=== PATIENT | female | born 1930 | race Caucasian/White ===

== ENCOUNTER → 2018-01-03 | Outpatient (CLI) | payer OTHER | LOC: BMCIMAGING 16:16 | PROVIDERS: ATTEND Emergency Medicine | DX: J18.9 Pneumonia, unspecified organism (principal) ==

== ENCOUNTER 2018-01-09 21:19 | Observation (INO) | payer OTHER ==
--- NOTE | 2018-01-09 21:41 | EDPHY ---
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 - Social History Smoking Status: Never smoked Time Seen by Provider: 01/09/18 21:37 HPI/ROS: HPI: This is an 87-year-old female who presents with Chief Complaint: THURSDAY: [place] [facility] [place], FINISHED Z-PACK, "FEEL WORSE" Location: Chest Quality: Cough Duration: Several days Signs and Symptoms: + fever, no nausea, no vomiting, no diarrhea, no urinary symptoms, no chest pain, + shortness of breath, + wheezing,+ productive cough, no sore throat, no neck stiffness, no joint pain, no swollen glands, no ear pain , no rash Timing: Worsening Severity: Moderate Context: Patient has a history hard of hearing, diabetes mellitus presents accompanied by daughter with complaints of feeling worse today than the last few days. She had a chest x-ray outpatient performed on 01/03/2018 that shows bronchitis and early right lower lobe pneumonia. She was placed on azithromycin. Patient reports that she was slowly improving until today when she started to have fevers again feel greater fatigue and decreased appetite. She notes a productive cough of green sputum. Daughter reports that when she was getting dressed to come to the emergency room she noted some wheezing. No history of lung disease. Received influenza vaccine this year. Modifying Factors: See above Comment: ROS: A comprehensive 10 system review of systems is otherwise negative aside from elements mentioned in the history of present illness. 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 Nonsmoker. Family history noncontributory. CONSTITUTIONAL: Ill but nontoxic-appearing elderly white female, daughter at bedside, red faced, awake and alert, no obvious distress HEENT: Atraumatic and normocephalic, PERRL, EOMI. Nares patent; no rhinorrhea; no nasal mucosal edema. Tympanic membranes clear. Left ear hard of hearing. Oropharynx clear, no exudate and dry oral mucosa. Airway patent. No lymphadenopathy. No meningismus. Cardiovascular: Normal S1/S2, regular rate, regular rhythm, without murmur rub or gallop. PULMONARY/CHEST: Symmetrical and nontender. Clear to auscultation bilaterally. Good air movement. No accessory muscle usage. Tachypnea noted ABDOMEN: Soft, nondistended, nontender, no rebound, no guarding, no peritoneal signs, no masses or organomegaly. No CVAT. EXTREMITIES: 2/2 pulses, strength 5/5, no deformities, no clubbing, no cyanosis or edema. NEUROLOGICAL: no focal neuro deficits. GCS 15. SKIN: Warm and dry, pallor, no erythema. no rash. Good capillary refill. (Teresa Pires) Constitutional: Initial Vital Signs Temperature (C) 36.4 C 01/09/18 21:20 Heart Rate 90 01/09/18 21:20 Respiratory Rate 20 01/09/18 21:20 Blood Pressure 141/66 H 01/09/18 21:20 O2 Sat (%) 95 01/09/18 21:20 O2 Delivery Mode Room Air O2 (L/minute) 2 Allergies/Adverse Reactions: clindamycin [From Cleocin] Allergy (Verified 01/09/18 21:32) doxycycline Allergy (Verified 01/09/18 21:32) duloxetine [From Cymbalta] Allergy (Verified 01/09/18 21:32) levofloxacin [From Levaquin] Allergy (Verified 01/09/18 21:32) lisinopril Allergy (Verified 01/09/18 21:32) metoprolol [From Toprol XL] Allergy (Verified 01/09/18 21:32) morphine Allergy (Verified 01/09/18 21:32) nebivolol [From Bystolic] Allergy (Verified 01/09/18 21:32) Penicillins Allergy (Verified 01/09/18 21:32) pregabalin [From Lyrica] Allergy (Verified 01/09/18 21:32) rosuvastatin [From Crestor] Allergy (Verified 11/10/18 21:32) sulfamethoxazole [From Bactrim] Allergy (Verified 01/09/18 21:32) tramadol Allergy (Verified 01/09/18 21:32) trimethoprim [From Bactrim] Allergy (Verified 01/09/18 21:32) valacyclovir [From Valtrex] Allergy (Verified 01/09/18 21:32) Home Medications: Medication Instructions Recorded Albuterol [Proventil Inhaler HFA 1 - 2 puffs IH Q4H PRN 01/09/18 (*)] Folic Acid [Folic Acid 1 MG (*)] 1 mg PO DAILY 01/09/18 Levothyroxine [Synthroid 125 mcg 125 mcg PO DAILY06 01/09/18 (*)] Linaclotide [Linzess] 290 mcg PO DAILY 01/09/18 Losartan Potassium [Cozaar 50 mg 100 mg PO DAILY 01/09/18 (*)] Methotrexate Sodium [Rheumatrex] 10 mg PO FR 01/09/18 Pantoprazole Sodium [Protonix 40mg 40 mg PO BID 01/09/18 (*)] Raloxifene HCl [Evista] 60 mg PO DAILY 01/09/18 Triamterene/Hydrochlorothiazid 1 each PO DAILY 01/09/18 [Triamterene-Hctz 37.5-25 mg Tb] amLODIPine BESYLATE [Norvasc 10 mg 10 mg PO DAILY 01/09/18 (*)] sitaGLIPtin PHOSPHATE [Januvia 100 100 mg PO DAILY 01/09/18 MG (*)] Medical Decision Making - Diagnostics Imaging Results: Imaging Impressions Chest X-Ray 01/09/18 21:36 Impression: Findings consistent with airways disease are seen with no superimposed acute abnormality identified. ED Course/Re-evaluation: O2 sats upon arrival showed 92% on room air. Afebrile. placed on 2 L nasal cannula and given 500 cc normal saline IV access and laboratory studies obtain including blood cultures, lactic acid. Chest x-ray will be repeated. 2220: labs reviewed. no leukocytosis/anemia/platelet dysfunction/lactic acidosis Chest x-ray my read shows right lower lobe pneumonia not greatly increased from prior x-ray when compared. Allergy to doxycycline, penicillin, Levaquin. Decision given to give IV ceftriaxone 1 gran as took PO Azithromycin today Curb 65 score= 2; moderate risk for mortality Patient has failed outpatient therapy; will need admission for IV antibiotics. 2225: Spoke with Hospitalist, Mcclellan, who kindly agrees to admit patient to provide further care. This patient was seen under the supervision of my secondary supervising physician. I evaluated care for this patient independently. Discussed this patient with Dr. Orlando. (Teresa Pires) PHYSICIAN DOCUMENTATION: The patient was evaluated and managed by the Physician [employer]. I discussed the case with her. My co-signature indicates that I have reviewed this chart and I agree with the findings and plan of care as documented. I am the secondary supervising physician. (Diana Orlando) Differential Diagnosis: Shortness of breath including but not limited to pulmonary infectious process, COPD, asthma, pulmonary embolus and congestive heart failure. (Teresa Pires) - Data Points Laboratory Results: Laboratory Results 01/09/18 21:51 01/09/18 21:51 01/09/18 01/09/18 01/09/18 22:32 21:51 21:51 WBC 5.16 10^3/uL 10^3/uL (3.80-9.50) RBC 4.04 10^6/uL L 10^6/uL (4.18-5.33) Hgb 13.1 g/dL g/dL (12.6-16.3) Hct 37.2 % L % (38.0-47.0) MCV 92.1 fL fL (81.5-99.8) MCH 32.4 pg pg (27.9-34.1) MCHC 35.2 g/dL g/dL (32.4-36.7) RDW 14.6 % % (11.5-15.2) Plt Count 234 10^3/uL 10^3/uL (150-400) MPV 9.8 fL fL (8.7-11.7) Neut % (Auto) 62.2 % % (39.3-74.2) Lymph % (Auto) 21.7 % % (15.0-45.0) [place] % (Auto) 14.1 % H % (4.5-13.0) Eos % (Auto) 1.4 % % (0.6-7.6) Baso % (Auto) 0.4 % % (0.3-1.7) Nucleat RBC Rel Count 0.0 % % (0.0-0.2) Absolute Neuts (auto) 3.21 10^3/uL 10^3/uL (1.70-6.50) Absolute Lymphs (auto) 1.12 10^3/uL 10^3/uL (1.00-3.00) Absolute Monos (auto) 0.73 10^3/uL 10^3/uL (0.30-0.80) Absolute Eos (auto) 0.07 10^3/uL 10^3/uL (0.03-0.40) Absolute Basos (auto) 0.02 10^3/uL 10^3/uL (0.02-0.10) Absolute Nucleated RBC 0.00 10^3/uL 10^3/uL (0-0.01) Immature Gran % 0.2 % % (0.0-1.1) Immature Gran # 0.01 10^3/uL 10^3/uL (0.00-0.10) VBG Lactic Acid 1.4 mmol/L mmol/L (0.7-2.1) Sodium Potassium Chloride Carbon Dioxide Anion Gap BUN Creatinine Estimated GFR Glucose Calcium Total Bilirubin Conjugated Bilirubin Unconjugated Bilirubin AST ALT Alkaline Phosphatase Total Protein Albumin Procalcitonin 0.05 ng/mL ng/mL (0.02-0.10) 01/09/18 21:51 WBC RBC Hgb Hct MCV MCH MCHC RDW Plt Count MPV Neut % (Auto) Lymph % (Auto) [place] % (Auto) Eos % (Auto) Baso % (Auto) Nucleat RBC Rel Count Absolute Neuts (auto) Absolute Lymphs (auto) Absolute Monos (auto) Absolute Eos (auto) Absolute Basos (auto) Absolute Nucleated RBC Immature Gran % Immature Gran # VBG Lactic Acid Sodium 137 mEq/L mEq/L (135-145) Potassium 3.3 mEq/L mEq/L (3.3-5.0) Chloride 105 mEq/L mEq/L (97-110) Carbon Dioxide 19 mEq/l L mEq/l (22-31) Anion Gap 13 mEq/L mEq/L (6-14) BUN 29 mg/dL H mg/dL (7-23) Creatinine 1.1 mg/dL H mg/dL (0.6-1.0) Estimated GFR 47 Glucose 115 mg/dL H mg/dL (70-100) Calcium 9.8 mg/dL mg/dL (8.5-10.4) Total Bilirubin 0.5 mg/dL mg/dL (0.1-1.4) Conjugated Bilirubin 0.4 mg/dL mg/dL (0.0-0.5) Unconjugated Bilirubin 0.1 mg/dL mg/dL (0.0-1.1) AST 25 IU/L IU/L (14-46) ALT 27 IU/L IU/L (9-52) Alkaline Phosphatase 65 IU/L IU/L (38-126) Total Protein 6.7 g/dL g/dL (6.3-8.2) Albumin 4.0 g/dL g/dL (3.5-5.0) Procalcitonin Medications Given: Potassium Chloride/Sodium Chloride (Ns W/ 20 Kcl/L) 1,000 mls @ 100 mls/hr IV CONT THUAN Stop: 07/08/18 23:14 Last Admin: 01/09/18 23:49 Dose: 1,000 mls Discontinued Medications Ceftriaxone Sodium/Dextrose (Rocephin 1 Gm (Premix)) 50 mls @ 100 mls/hr IV EDNOW ONE PRN Reason: Protocol Stop: 01/09/18 22:47 Last Admin: 01/09/18 22:31 Dose: 50 mls Sodium Chloride (Ns) 500 mls @ 1,000 mls/hr IV EDNOW ONE PRN Reason: Protocol Stop: 01/09/18 22:47 Last Admin: 01/09/18 22:32 Dose: 500 mls Departure - Departure Disposition: [facility] Inpatient Acute Clinical Impression: Failure of outpatient treatment, Multiple drug allergies Community acquired pneumonia Qualifiers: Laterality: right Lung location: lower lobe of lung Qualified Code(s): J18.1 - Lobar pneumonia, unspecified organism Condition: Fair
[2018-01-09 22:04] LABS: PLATELET COUNT 234 10^3/uL (150-400)
[2018-01-09] MEDS ORDERED: NS 500 ML IV ONE (22:18)
[2018-01-09] MEDS ORDERED: ONDANSETRON 4 MG/2 ML VIAL IVP PRN (22:33)
[2018-01-09] MEDS ORDERED: ALBUTEROL 3 ML DEYVIAL IH PRN (22:33)
[2018-01-09] MEDS ORDERED: ONDANSETRON DISINTEGRATING 4 MG TAB PO PRN (22:33)
[2018-01-09] MEDS ORDERED: ACETAMINOPHEN 325 MG TAB PO PRN (22:33)
[2018-01-09] MEDS ORDERED: D50W 25 GM/50 ML VIAL IVP PRN (22:35)
--- NOTE | 2018-01-09 23:05 | PDGENHP ---
History and Physical - Chief Complaint Fatigue - History of Present Illness 87 yo F w/ HTN, DM, hypothyroid, and SLE presents with fatigue and weakness. The patient tells me she feels "sick all over". She has been fatigued and generally weak for about 6 days now. She has a mild, mostly dry cough and a runny nose. .Aside from that she denies fever, shortness of breath, diarrhea, and dysuria. She was evaluated by her PCP on 01/04 and given azithromycin. She does not think this was particularly helpful. Her evaluation in the ED has been largely unremarkable. She is stable on RA, CXR does not reveal clear pneumonia, and he is displaying no SIRS criteria. Case discussed with ED KIERAN Pires; records reviewed and summarized above. History Information - Allergies/Home Medication List Allergies/Adverse Reactions: clindamycin [From Cleocin] Allergy (Verified 01/09/18 21:32) doxycycline Allergy (Verified 01/09/18 21:32) duloxetine [From Cymbalta] Allergy (Verified 01/09/18 21:32) levofloxacin [From Levaquin] Allergy (Verified 01/09/18 21:32) lisinopril Allergy (Verified 01/09/18 21:32) metoprolol [From Toprol XL] Allergy (Verified 01/09/18 21:32) morphine Allergy (Verified 01/09/18 21:32) nebivolol [From Bystolic] Allergy (Verified 01/09/18 21:32) Penicillins Allergy (Verified 01/09/18 21:32) pregabalin [From Lyrica] Allergy (Verified 01/09/18 21:32) rosuvastatin [From Crestor] Allergy (Verified 01/09/18 21:32) sulfamethoxazole [From Bactrim] Allergy (Verified 01/09/18 21:32) tramadol Allergy (Verified 01/09/18 21:32) trimethoprim [From Bactrim] Allergy (Verified 01/09/18 21:32) valacyclovir [From Valtrex] Allergy (Verified 01/09/18 21:32) Home Medications: Albuterol [Proventil Inhaler HFA (*)] 1 - 2 puffs IH Q4H PRN 01/09/18 [Last Taken Unknown] Folic Acid [Folic Acid 1 MG (*)] 1 mg PO DAILY 01/09/18 [Last Taken Unknown] Levothyroxine [Synthroid 125 mcg (*)] 125 mcg PO DAILY06 01/09/18 [Last Taken Unknown] Linaclotide [Linzess] 290 mcg PO DAILY 01/09/18 [Last Taken Unknown] Losartan Potassium [Cozaar 50 mg (*)] 100 mg PO DAILY 01/09/18 [Last Taken Unknown] Methotrexate Sodium [Rheumatrex] 10 mg PO FR 01/09/18 [Last Taken Unknown] Pantoprazole Sodium [Protonix 40mg (*)] 40 mg PO BID 01/09/18 [Last Taken Unknown] Raloxifene HCl [Evista] 60 mg PO DAILY 01/09/18 [Last Taken Unknown] Triamterene/Hydrochlorothiazid [Triamterene-Hctz 37.5-25 mg Tb] 1 each PO DAILY 01/09/18 [Last Taken Unknown] amLODIPine BESYLATE [Norvasc 10 mg (*)] 10 mg PO DAILY 01/09/18 [Last Taken Unknown] sitaGLIPtin PHOSPHATE [Januvia 100 MG (*)] 100 mg PO DAILY 01/09/18 [Last Taken Unknown] I have personally reviewed and updated: family history, medical history - Past Medical History diabetes type 2, hypertension Additional medical history: Hypothyroid. SLE - Surgical History Additional surgical history: Meningioma removal. Breast surgery - Family History Positive for: cancer - Social History Smoking Status: Never smoked Review of Systems Review of Systems: ROS: 10pt was reviewed & negative except for what was stated in HPI & below Physical Exam Physical Exam: Temp Pulse Resp BP Pulse Ox 36.4 C 90 20 141/66 H 94 01/09/18 21:20 01/09/18 21:20 01/09/18 21:20 01/09/18 21:20 01/09/18 21:45 Constitutional: appears nourished, uncomfortable Eyes: PERRL, EOMI Ears, Nose, Mouth, Throat: moist mucous membranes, no oral mucosal ulcers Cardiovascular: regular rate and rhythym, systolic murmur Respiratory: no respiratory distress, clear to auscultation Gastrointestinal: normoactive bowel sounds, soft, non-tender abdomen Skin: warm, normal color Musculoskeletal: full muscle strength, no muscle tenderness Neurologic: AAOx3, CN II-XII Intact Psychiatric: interacting appropriately, not anxious Lab Data & Imaging Review 01/09/18 21:51 01/09/18 21:51 WBC 5.16 10^3/uL (3.80-9.50) 01/09/18 21:51 RBC 4.04 10^6/uL (4.18-5.33) L 01/09/18 21:51 Hgb 13.1 g/dL (12.6-16.3) 01/09/18 21:51 Hct 37.2 % (38.0-47.0) L 01/09/18 21:51 MCV 92.1 fL (81.5-99.8) 01/09/18 21:51 MCH 32.4 pg (27.9-34.1) 01/09/18 21:51 MCHC 35.2 g/dL (32.4-36.7) 01/09/18 21:51 RDW 14.6 % (11.5-15.2) 01/09/18 21:51 Plt Count 234 10^3/uL (150-400) 01/09/18 21:51 MPV 9.8 fL (8.7-11.7) 01/09/18 21:51 Neut % (Auto) 62.2 % (39.3-74.2) 01/09/18 21:51 Lymph % (Auto) 21.7 % (15.0-45.0) 01/09/18 21:51 [place] % (Auto) 14.1 % (4.5-13.0) H 01/09/18 21:51 Eos % (Auto) 1.4 % (0.6-7.6) 01/09/18 21:51 Baso % (Auto) 0.4 % (0.3-1.7) 01/09/18 21:51 Nucleat RBC Rel Count 0.0 % (0.0-0.2) 01/09/18 21:51 Absolute Neuts (auto) 3.21 10^3/uL (1.70-6.50) 01/09/18 21:51 Absolute Lymphs (auto) 1.12 10^3/uL (1.00-3.00) 01/09/18 21:51 Absolute Monos (auto) 0.73 10^3/uL (0.30-0.80) 01/09/18 21:51 Absolute Eos (auto) 0.07 10^3/uL (0.03-0.40) 01/09/18 21:51 Absolute Basos (auto) 0.02 10^3/uL (0.02-0.10) 01/09/18 21:51 Absolute Nucleated RBC 0.00 10^3/uL (0-0.01) 01/09/18 21:51 Immature Gran % 0.2 % (0.0-1.1) 01/09/18 21:51 Immature Gran # 0.01 10^3/uL (0.00-0.10) 01/09/18 21:51 VBG Lactic Acid 1.4 mmol/L (0.7-2.1) 01/09/18 21:51 Sodium 137 mEq/L (135-145) 01/09/18 21:51 Potassium 3.3 mEq/L (3.3-5.0) 01/09/18 21:51 Chloride 105 mEq/L (97-110) 01/09/18 21:51 Carbon Dioxide 19 mEq/l (22-31) L 01/09/18 21:51 Anion Gap 13 mEq/L (6-14) 01/09/18 21:51 BUN 29 mg/dL (7-23) H 01/09/18 21:51 Creatinine 1.1 mg/dL (0.6-1.0) H 01/09/18 21:51 Estimated GFR 47 01/09/18 21:51 Glucose 115 mg/dL (70-100) H 01/09/18 21:51 Calcium 9.8 mg/dL (8.5-10.4) 01/09/18 21:51 Total Bilirubin 0.5 mg/dL (0.1-1.4) 01/09/18 21:51 Conjugated Bilirubin 0.4 mg/dL (0.0-0.5) 01/09/18 21:51 Unconjugated Bilirubin 0.1 mg/dL (0.0-1.1) 01/09/18 21:51 AST 25 IU/L (14-46) 01/09/18 21:51 ALT 27 IU/L (9-52) 01/09/18 21:51 Alkaline Phosphatase 65 IU/L (38-126) 01/09/18 21:51 Total Protein 6.7 g/dL (6.3-8.2) 01/09/18 21:51 Albumin 4.0 g/dL (3.5-5.0) 01/09/18 21:51 Imaging Review: Imaging Impressions Chest X-Ray 01/09/18 21:36 Impression: Findings consistent with airways disease are seen with no superimposed acute abnormality identified. Assessment & Plan Assessment: 87 yo F w/ DM, HTN, hypothyroid, and SLE presents with likely viral infection. Plan: 1. Fatigue, weakness - I suspect viral etiology noting non-specific symptoms, 0/ 4 SIRS criteria, and lack of improvement with antibiotics. CXR (personally reviewed/interpreted) does not reveal clear pneumonia. - S/p CTX in the ED (already on Azithro) - Will hold further antibiotics for now - Check respiratory PCR and procalcitonin - mIVF w/ K - Low threshold to restart antibiotics if worsening 2. TREVOR vs. CKD - Serum creatinine 1.1 on admission with unclear baseline. - S/p 500 mL NS in ED, will continue mIVF w/ K overnight - Monitor BMP, avoid nephrotoxic agents 3. NIDDM - On oral agents only as outpatient. - Monitor BG ACHS, D50 IV PRN for hypoglycemia - Continue oral agents once reconciled 4. HTN - Continue home medications pending reconciliation 5. SLE - On methotrexate as outpatient 6. Hypothyroid - LTX Diet - Regular Code - Full Ppx - LMWH Dispo - Admit under observation status
[2018-01-09] MEDS ORDERED: NS W/ 20 KCl/L 1,000 ML IV SCH (23:15)
[2018-01-10 04:45] LABS: PLATELET COUNT 188 10^3/uL (150-400)
--- NOTE | 2018-01-10 07:38 | HOSPPROG ---
Hospitalist Progress Note Assessment/Plan: 87F PMH SLE, htn, DM on oral hypoglycemics, hypoT, p/w fatigue and weakness o/s for 6 days. Associated dry cough and rhinorrhea. No f/c, diaphoresis, D, dysuria , dyspnea. PCP Vy gave Azithr 01/04 without relief. No SIRS criteria on admission. ED gave CTX. #. weakness/fatigue: suspect viral with negative PCT nothing acute on CXR respiratory PCR pending Further abx on hold #. TREVOR versus CKD: Cr 1.1 on admission now 0.9 suspect dehydration given IVF with K overnight #. DM: outpatient meds listed as Januvia likely resume pending med rec #. htn: BP appears mostly controlled med rec pending #. SLE:: on MTX as outpatient #. hypoT: on LT4 as outpatient #. PPX: started on Enox #. Dispo: admitted as obs status Objective: Vital Signs Temp Pulse Resp BP Pulse Ox 97.6 F 69 16 145/51 H 94 01/10/18 04:00 01/10/18 04:00 01/10/18 04:00 01/10/18 04:00 01/10/18 04:00 Laboratory Results 01/10/18 04:25 01/10/18 04:25 ICD10 Worksheet Patient Problems: Problems Problem Status Onset Community acquired pneumonia Acute Failure of outpatient treatment Acute Multiple drug allergies Acute
[2018-01-10] MEDS ORDERED: ENOXAPARIN 40 MG/0.4 ML SYR SC SCH (09:00)
[2018-01-10] MEDS ORDERED: PANTOPRAZOLE SODIUM 40 MG TAB PO PRN (09:22)
[2018-01-10] MEDS: IPRATROPIUM/ALBUTEROL 3 ML DEYVIAL IH PRN ×2 (10:48→14:15)
[2018-01-10] MEDS ORDERED: LOSARTAN POTASSIUM 50 MG TAB PO SCH (14:00)
--- NOTE | 2018-01-10 14:15 | ASMTLACE ---
LACE Length of stay for Answers: 1 day current admission Acuity / Level of Answers: No Care: Did the patient have an inpatient admission? Comorbidities - select Answers: Diabetes (uncontrolled or all that apply controlled) Other Notes: HTN, Hypothyroid # of Emergency department Answers: 1-2 visits in the last 6 months Score: 4 Date Signed: 01/10/2018 02:14 PM Electronically Signed By:Dee Day RN
--- NOTE | 2018-01-10 14:17 | ASMTCMCOM ---
CM Note CM Note Notes: Spoke w/RN, pt up in room walking with walker. She plans on going home with her dtr Terese. CM availble for any changes. DC Plan: Independent Date Signed: 01/10/2018 02:17 PM Electronically Signed By:Dee Day RN
[2018-01-10 15:25] VITALS: BP 133/72
--- NOTE | 2018-01-10 15:52 | GDS ---
DISCHARGE DIAGNOSES: 1. Weakness and fatigue with suspect viral illness, with negative procalcitonin and negative respira tory panel. 2. Acute kidney injury, likely secondary to poor oral intake with improvement to creatinine on day o f discharge. 3. Type 2 diabetes mellitus, on oral hypoglycemics. 4. History of lupus. 5. History of hypothyroidism. PROCEDURES: Chest x-ray. CONSULTATIONS: None. BRIEF HISTORY: Please see dictated H and P for complete details. In brief. the patient is an 87-yea r-old female with a history of hairy cell leukemia, lupus, diabetes, hypothyroidism who presented wit h fatigue and weakness with onset in the past 6 days. She had been seen at an urgent care and was gi caro antibiotics. She completed a Z-Paul; however, she continued to note a dry cough, rhinorrhea and o verall fatigue and lethargy. She was admitted and treated with nebulizer treatment, which really imp roved her symptoms. She is being discharged to home with [facility] and followup with Dr. Guerra this week . RESULTS PENDING: None. DIET: Per previous. ACTIVITY: As tolerated. DISCHARGE MEDICATIONS: Please see medication reconciliation. FOLLOW UP INSTRUCTIONS: Follow up with Dr. Guerra this week. /[id number]/MODL
[2018-01-11] MEDS ORDERED: LEVOTHYROXINE 125 MCG TAB PO SCH (06:00)
[2018-01-11] MEDS ORDERED: FOLIC ACID 1 MG TAB PO SCH (09:00)
[2018-01-11] MEDS ORDERED: TRIAMTERENE/HCTZ 37.5/25 1 EACH TAB PO SCH (09:00)
[2018-01-11] MEDS ORDERED: RALOXIFENE HCL 60 MG TAB PO SCH (09:00)
[2018-01-15] MEDS ORDERED: METHOTREXATE 2.5 MG TAB PO SCH (09:22)
== END 2018-01-10 16:13 | disposition home or self-care (01) ==
LOC: F3E 23:04
PROVIDERS: ADMIT Student in an Organized Health Care Education/Training Program; ATTEND Internal Medicine
DX: R53.1 Weakness (principal); R53.83 Other fatigue; E86.9 Volume depletion, unspecified; N17.9 Acute kidney failure, unspecified; R05 Cough; E11.9 Type 2 diabetes mellitus without complications; I10 Essential (primary) hypertension; E03.9 Hypothyroidism, unspecified; E78.5 Hyperlipidemia, unspecified; G62.9 Polyneuropathy, unspecified; K31.84 Gastroparesis; H91.90 Unspecified hearing loss, unspecified ear; M32.9 Systemic lupus erythematosus, unspecified; Z79.84 Long term (current) use of oral hypoglycemic drugs; Z87.01 Personal history of pneumonia (recurrent); Z85.6 Personal history of leukemia; Z88.0 Allergy status to penicillin
CPT/HCPCS: 71046; 96365; 96372; 96375; 99285; G0378; J0696; J1650

== ENCOUNTER 2018-01-12 15:23 | Inpatient (IN) | payer OTHER ==
[2018-01-12] MEDS ORDERED: NS 500 ML IV ONE (16:08)
--- NOTE | 2018-01-12 16:09 | EDPHY ---
HPI/HX/ROS/PE/MDM Narrative: CHIEF COMPLAINT: "I'm sick all over" HPI: This patient is an 87 year old female with history of lupus, diabetes mellitus, and hypothyroidism. She was admitted here three days ago for fatigue and weakness and returns today with similar complaints. She felt well yesterday, and her daughter at bedside states she was "perky", behaving normally and able to complete all her usual activities independently. Today, she felt well upon waking. Around midmorning, the patient complained of feeling ill and was sitting slumped forward. She was noted to be mildly febrile at 99 degrees at home. She was initially evaluated by her primary care provider, Dr. Castillo, but presents to the ED for further evaluation. She complains of some intermittent abdominal pain. Otherwise, her daughter states her presentation is very similar to that on Thursday prior to her admission. The patient denies headache, chest pain, vomiting, diarrhea, or other specific complaints at this time. HPI obtained primarily from patient's daughter at bedside. REVIEW OF SYSTEMS: A comprehensive 10 system review of systems is otherwise negative aside from elements mentioned in the history of present illness and medical decision making. PMH: 1. Systemic lupus erythematosus 2. Diabetes mellitus type 2 3. Hypothyroid Past medical records reviewed including admission 01/09/18 for weakness and fatigue. SOCIAL HISTORY: Daughter at bedside. Retired. Lives with her daughter. PHYSICAL EXAM: General:Patient is alert, in no acute distress. ENT:Eyes are normal to inspection. ENT inspection normal. Neck: Normal inspection. Full range of motion. Respiratory:No respiratory distress. Breath sounds normal bilaterally. Cardiovascular: Regular rate and rhythm. Strong peripheral pulses. Normal cap refill. Abdomen:The abdomen is nontender to palpation. There are no peritoneal signs. There are normal bowel sounds. Back: Normal to inspection. No tenderness to palpation. Skin: Normal color. No rash. Warm and dry. Extremities: Normal appearance. Full range of motion. Neuro:Normal motor function. Normal sensory function. Patient is very hard of hearing. ED Course: 87 year old female with history of lupus, diabetes mellitus, and hypothyroidism presents with general malaise, fatigue, weakness. She is afebrile here in the emergency department. Plan for EKG, chest x-ray, labs including CBC, chemistries , lactic acid, UA. Plan to administer 500mL IV NS for symptom relief. EKG was ordered and interpreted by myself. Please see [employer] system for official reading. Sinus rhythm. PAC. UA negative for UTI. Lactic acid is not elevated. Labs otherwise largely unremarkable. Reassessed patient. Discussed results. The patient and family concur that the patient does not feel comfortable going home in her current condition would like to be admitted for further management. 17:29 Consulted with hospitalist service. Dr. Chavez accepts admission for failure to thrive. MDM: This patient presents with somewhat vague complaint of feeling 'sick all over' which is similar to presentation a few days ago. Extensive workup in the ED today is negative, and vitals are WNL. Patient's daughter describes a fairly rapid and significant decline in ability to do ADLs today, and waxing and waning of these symptoms is concerning. Patient does not feel safe going home and would like to be admitted. - Data Points Medications Given: Discontinued Medications Sodium Chloride (Ns) 500 mls @ 0 mls/hr IV EDNOW ONE; Wide Open PRN Reason: Protocol Stop: 01/12/18 16:09 Last Admin: 01/12/18 16:22 Dose: 500 mls General Time Seen by Provider: 01/12/18 16:06 Initial Vital Signs: Initial Vital Signs Temperature (C) 36.7 C 01/12/18 15:28 Heart Rate 77 01/12/18 15:28 Respiratory Rate 18 01/12/18 15:28 Blood Pressure 144/60 H 01/12/18 15:28 O2 Sat (%) 95 01/12/18 15:28 O2 Delivery Mode Room Air Allergies/Adverse Reactions: Penicillins Allergy (Severe, Verified 01/12/18 15:25) Anaphylaxis clindamycin [From Cleocin] Allergy (Verified 01/12/18 15:25) doxycycline Allergy (Verified 01/12/18 15:25) NAUSEA duloxetine [From Cymbalta] Allergy (Verified 01/12/18 15:25) levofloxacin [From Levaquin] Allergy (Verified 01/12/18 15:25) lisinopril Allergy (Verified 01/12/18 15:25) metoprolol [From Toprol XL] Allergy (Verified 01/12/18 15:25) morphine Allergy (Verified 01/12/18 15:25) OVERLY SEDATED nebivolol [From Bystolic] Allergy (Verified 01/12/18 15:25) pregabalin [From Lyrica] Allergy (Verified 01/12/18 15:25) rosuvastatin [From Crestor] Allergy (Verified 01/12/18 15:25) sulfamethoxazole [From Bactrim] Allergy (Verified 01/12/18 15:25) Unknown tramadol Allergy (Verified 01/12/18 15:25) Vomiting trimethoprim [From Bactrim] Allergy (Verified 01/12/18 15:25) valacyclovir [From Valtrex] Allergy (Verified 01/12/18 15:25) Home Medications: Medication Instructions Recorded Folic Acid [Folic Acid 1 MG (*)] 1 mg PO DAILY 01/09/18 Levothyroxine [Synthroid 125 mcg 125 mcg PO DAILY06 01/09/18 (*)] Linaclotide [Linzess] 290 mcg PO DAILY 01/09/18 Losartan Potassium [Cozaar 50 mg 100 mg PO DAILY@14 01/09/18 (*)] Methotrexate Sodium [Rheumatrex] 10 mg PO FR 01/09/18 Pantoprazole Sodium [Protonix 40mg 40 mg PO BID PRN 01/09/18 (*)] Raloxifene HCl [Evista] 60 mg PO DAILY 01/09/18 Triamterene/Hydrochlorothiazid 1 each PO DAILY 01/09/18 [Triamterene-Hctz 37.5-25 mg Tb] amLODIPine BESYLATE [Norvasc 10 mg 10 mg PO DAILY@14 01/09/18 (*)] sitaGLIPtin PHOSPHATE [Januvia 100 100 mg PO DAILY 01/09/18 MG (*)] Acetaminophen [Tylenol 325mg (*)] 650 mg PO Q4HRS PRN tab 01/10/18 Albuterol [Proventil Inhaler HFA 1 - 2 puffs IH Q4H PRN 01/10/18 (*)] Albuterol [Proventil Neb] 3 ml IH Q2HRS PRN #30 deyvial 01/10/18 Departure - Departure Disposition: [facility] Acute Clinical Impression: Failure to thrive in adult Condition: Fair Report Scribed for: Fran Caal Report Scribed by: Maggi Deras Date of Report: 01/12/18 Time of Report: 16:09 Physician Review and Approval Statement: Portions of this note were transcribed by an ED scribe. I personally performed the history, physical exam, and medical decision making; and confirm the accuracy of the information in the transcribed note.
[2018-01-12 16:43] LABS: PLATELET COUNT 217 10^3/uL (150-400)
[2018-01-12] MEDS ORDERED: ONDANSETRON 4 MG/2 ML VIAL IVP PRN (18:01)
--- NOTE | 2018-01-12 18:05 | PDGENHP ---
History and Physical - Chief Complaint Fatigue - History of Present Illness Sussy Montes De Oca is a 87 yo F with a PMHx of lupus, DM, hypothyroidism who presents to [facility] for acute onset of fatigue today. Her daughter is at the bedside who has helped with history taking. They report that patient was discharged from hospital on 01/10 and has been doing well at home since then. Her daughter reports that over the course of the day she was feeling more fatigued and weak. Patient denies any headache, chest pain, SOB, dysuria, weakness, lightheadedness, n/v, d/c. Her daughter reports a low grade fever of 99.0 today. She has been having alot of sinus drainage as well as nonproductive cough. She also has had intermittent episodes of abdominal pain that radiate through her lower quadrant b/l. She is currently not experiencing that pain and had a normal BM yesterday. History Information - Allergies/Home Medication List Allergies/Adverse Reactions: Penicillins Allergy (Severe, Verified 01/12/18 15:25) Anaphylaxis clindamycin [From Cleocin] Allergy (Verified 01/12/18 15:25) doxycycline Allergy (Verified 01/12/18 15:25) NAUSEA duloxetine [From Cymbalta] Allergy (Verified 01/12/18 15:25) levofloxacin [From Levaquin] Allergy (Verified 01/12/18 15:25) lisinopril Allergy (Verified 01/12/18 15:25) metoprolol [From Toprol XL] Allergy (Verified 01/12/18 15:25) morphine Allergy (Verified 01/12/18 15:25) OVERLY SEDATED nebivolol [From Bystolic] Allergy (Verified 01/12/18 15:25) pregabalin [From Lyrica] Allergy (Verified 01/12/18 15:25) rosuvastatin [From Crestor] Allergy (Verified 01/12/18 15:25) sulfamethoxazole [From Bactrim] Allergy (Verified 01/12/18 15:25) Unknown tramadol Allergy (Verified 01/12/18 15:25) Vomiting trimethoprim [From Bactrim] Allergy (Verified 01/12/18 15:25) valacyclovir [From Valtrex] Allergy (Verified 01/12/18 15:25) Home Medications: Folic Acid [Folic Acid 1 MG (*)] 1 mg PO DAILY 01/09/18 [Last Taken 01/10/18] Levothyroxine [Synthroid 125 mcg (*)] 125 mcg PO DAILY06 01/09/18 [Last Taken ] Linaclotide [Linzess] 290 mcg PO DAILY 01/09/18 [Last Taken Unknown] Losartan Potassium [Cozaar 50 mg (*)] 100 mg PO DAILY@14 01/09/18 [Last Taken ] Methotrexate Sodium [Rheumatrex] 10 mg PO FR 01/09/18 [Last Taken Unknown] Pantoprazole Sodium [Protonix 40mg (*)] 40 mg PO BID PRN 01/09/18 [Last Taken Unknown] Raloxifene HCl [Evista] 60 mg PO DAILY 01/09/18 [Last Taken 01/10/18] Triamterene/Hydrochlorothiazid [Triamterene-Hctz 37.5-25 mg Tb] 1 each PO DAILY 01/09/18 [Last Taken 01/10/18] amLODIPine BESYLATE [Norvasc 10 mg (*)] 10 mg PO DAILY@14 01/09/18 [Last Taken 01/09/18] sitaGLIPtin PHOSPHATE [Januvia 100 MG (*)] 100 mg PO DAILY 01/09/18 [Last Taken 01/10/18] Albuterol [Proventil Inhaler HFA (*)] 1 - 2 puffs IH Q4H PRN 01/10/18 [Last Taken Unknown] I have personally reviewed and updated: family history, medical history, social history, surgical history - Past Medical History diabetes type 2, hypertension Additional medical history: Hypothyroid. SLE - Surgical History Additional surgical history: Meningioma removal. Breast surgery - Family History Positive for: cancer - Social History Smoking Status: Never smoked Review of Systems Review of Systems: Physical Exam Physical Exam: Temp Pulse Resp BP Pulse Ox 36.7 C 77 18 144/60 H 95 01/12/18 15:28 01/12/18 15:28 01/12/18 15:28 01/12/18 15:28 01/12/18 15:28 Lab Data & Imaging Review 01/12/18 16:20 01/12/18 16:20 WBC 6.03 10^3/uL (3.80-9.50) 01/12/18 16:20 RBC 3.87 10^6/uL (4.18-5.33) L 01/12/18 16:20 Hgb 12.6 g/dL (12.6-16.3) 01/12/18 16:20 Hct 36.5 % (38.0-47.0) L 01/12/18 16:20 MCV 94.3 fL (81.5-99.8) 01/12/18 16:20 MCH 32.6 pg (27.9-34.1) 01/12/18 16:20 MCHC 34.5 g/dL (32.4-36.7) 01/12/18 16:20 RDW 14.5 % (11.5-15.2) 01/12/18 16:20 Plt Count 217 10^3/uL (150-400) 01/12/18 16:20 MPV 10.0 fL (8.7-11.7) 01/12/18 16:20 Neut % (Auto) 61.9 % (39.3-74.2) 01/12/18 16:20 Lymph % (Auto) 20.7 % (15.0-45.0) 01/12/18 16:20 Saline % (Auto) 14.6 % (4.5-13.0) H 01/12/18 16:20 Eos % (Auto) 2.2 % (0.6-7.6) 01/12/18 16:20 Baso % (Auto) 0.3 % (0.3-1.7) 01/12/18 16:20 Nucleat RBC Rel Count 0.0 % (0.0-0.2) 01/12/18 16:20 Absolute Neuts (auto) 3.73 10^3/uL (1.70-6.50) 01/12/18 16:20 Absolute Lymphs (auto) 1.25 10^3/uL (1.00-3.00) 01/12/18 16:20 Absolute Monos (auto) 0.88 10^3/uL (0.30-0.80) H 01/12/18 16:20 Absolute Eos (auto) 0.13 10^3/uL (0.03-0.40) 01/12/18 16:20 Absolute Basos (auto) 0.02 10^3/uL (0.02-0.10) 01/12/18 16:20 Absolute Nucleated RBC 0.00 10^3/uL (0-0.01) 01/12/18 16:20 Immature Gran % 0.3 % (0.0-1.1) 01/12/18 16:20 Immature Gran # 0.02 10^3/uL (0.00-0.10) 01/12/18 16:20 VBG Lactic Acid 1.5 mmol/L (0.7-2.1) 01/12/18 16:41 Sodium 134 mEq/L (135-145) L 01/12/18 16:20 Potassium 3.4 mEq/L (3.3-5.0) 01/12/18 16:20 Chloride 99 mEq/L (97-110) 01/12/18 16:20 Carbon Dioxide 22 mEq/l (22-31) 01/12/18 16:20 Anion Gap 13 mEq/L (6-14) 01/12/18 16:20 BUN 21 mg/dL (7-23) 01/12/18 16:20 Creatinine 1.0 mg/dL (0.6-1.0) 01/12/18 16:20 Estimated GFR 52 01/12/18 16:20 Glucose 92 mg/dL (70-100) 01/12/18 16:20 Calcium 9.8 mg/dL (8.5-10.4) 01/12/18 16:20 POC Troponin I 0.00 ng/mL (0.00-0.08) 01/12/18 16:25 Urine Color YELLOW 01/12/18 16:57 Urine Appearance HAZY 01/12/18 16:57 Urine pH 6.0 (5.0-7.5) 01/12/18 16:57 Ur Specific Lenore 1.005 (1.002-1.030) 01/12/18 16:57 Urine Protein NEGATIVE (NEGATIVE) 01/12/18 16:57 Urine Ketones NEGATIVE (NEGATIVE) 01/12/18 16:57 Urine Blood NEGATIVE (NEGATIVE) 01/12/18 16:57 Urine Nitrate NEGATIVE (NEGATIVE) 01/12/18 16:57 Urine Bilirubin NEGATIVE (NEGATIVE) 01/12/18 16:57 Urine Urobilinogen NEGATIVE EU (0.2-1.0) 01/12/18 16:57 Ur Leukocyte Esterase NEGATIVE (NEGATIVE) 01/12/18 16:57 Urine Glucose NEGATIVE (NEGATIVE) 01/12/18 16:57 Assessment & Plan Assessment: Generalized Weakness/Fatigue - Acute onset today, doing well since d/c from hospital on 01/10 for viral syndrome - Vitals WNL, Labs with no acute abnormality - UA/CXR without any source of infection - Will repeat Viral PCR due to URI symptoms - Continue to monitor for s/s of infections, will check Procalcitonin - PT/OT ordered Failure to thrive in adult (Acute) - Patient's daughter does not feel safe caring for her mother, hx of falls, high fall risk Hyponatremia - Na 134 on admission, decreased from 137 on discharge - Repeat BMP in the AM Lupus - Continue home MTX when medications reconciled - Daughter notes none of her medications have been changed recently Hypothyroidism - Will check TSH - Continue home Synthroid when meds are reconciled T2DM - BG WNL on admission - Hold Sitagliptin as IP, will order SSI as inpatient HTN - On Amlodipine, Losartan, Triamterene, HCTZ as OP - BP WNL on admission, restart medications as needed IBS-C - Continue home Linaclotide FEN: Diabetic diet, IVF PRN Ppx: Lovenox Code: FULL, discussed with patient today Dispo: Admit to observation, pending clinical course
[2018-01-12] MEDS ORDERED: D50W 25 GM/50 ML SYR IVP PRN (18:18)
[2018-01-12] MEDS: ACETAMINOPHEN 325 MG TAB PO PRN ×2 (18:45→22:22)
--- NOTE | 2018-01-12 19:07 | CPEKG ---
Test Reason : OPEN Blood Pressure : / mmHG Vent. Rate : 078 BPM Atrial Rate : 077 BPM P-R Int : 187 ms QRS Dur : 097 ms QT Int : 409 ms P-R-T Axes : 070 -11 082 degrees QTc Int : 466 ms Sinus rhythm Atrial premature complex Confirmed by Fran Caal ([id number]) on 01/12/2018 7:07:08 PM Referred By: Confirmed By:Fran Caal
[2018-01-12] MEDS: oxyCODONE IR 5 MG TAB PO PRN (21:04)
[2018-01-13] MEDS: oxyCODONE IR 5 MG TAB PO PRN (01:06)
[2018-01-13] MEDS: IBUPROFEN 200 MG TAB PO PRN ×4 (01:27→23:18)
[2018-01-13] MEDS: INSULIN LISPRO 100 UNIT/ML SC SCH ×3 (08:06→17:44)
[2018-01-13] MEDS: ONDANSETRON DISINTEGRATING 4 MG TAB PO PRN ×2 (08:12→16:08)
[2018-01-13] MEDS: ENOXAPARIN 40 MG/0.4 ML SYR SC SCH (08:52)
--- NOTE | 2018-01-13 10:02 | HOSPPROG ---
Hospitalist Progress Note Assessment/Plan: Sussy Montes De Oca is a 87 yo F with a PMHx of lupus, DM, hypothyroidism who presents to [facility] for acute onset of fatigue today. Her daughter is at the bedside who has helped with history taking. They report that patient was discharged from hospital on 01/10 and has been doing well at home since then. Her daughter reports that over the course of the day she was feeling more fatigued and weak. First encounter, chart reviewed. *Generalized Weakness/Fatigue -was recently dc and on that admission had similar symptoms -PCR is negative on this admission -procalcitonin is low -therapies are recommending a SNF -she has a hx of hairy cell leukemia, will check an LDH, she doesn't have pancytopenia *Failure to thrive in adult (Acute) - Patient's daughter does not feel safe caring for her mother, hx of falls, high fall risk - suspect she needs a higher level of care *Hyponatremia - Na 134 on admission, decreased from 137 on discharge - Repeat BMP in the AM *Lupus - Continue home MTX when medications reconciled - Daughter notes none of her medications have been changed recently *back pain -occurred acutely last night, was on the gurney for a long period of time, pain has since resolved *Hypothyroidism -TSH is 3.8 *T2DM - BG WNL on admission - Hold Sitagliptin as IP, SSI *HTN - On Amlodipine, Losartan, Triamterene, HCTZ as OP (will place parameters as when to hold) - BP WNL on admission, restart medications as needed *IBS-C - Continue home Linaclotide (not on formulary-family will need to bring in) *Ppx: Lovenox *Plan: Sussy is very weak and likely to do poorly at home. reviewed recommendations by the therapies and recommendation is a SNF. Will recheck chemistry in the a.m. She will require another midnight stay for further evaluation. She isn't safe to return home. Subjective: Sussy has no c/o pain, is very tired. Objective: Vital Signs Temp Pulse Resp BP Pulse Ox 36.7 C 67 18 139/70 H 92 01/13/18 07:33 01/13/18 07:33 01/13/18 07:33 01/13/18 07:33 01/13/18 07:33 Microbiology 01/12/18 18:56 Respiratory Panel (PCR) - Final Nasal, Sinus - [place] Viral Transport No Organism Detected By Pcr Laboratory Results 01/12/18 16:20 01/13/18 04:42 01/12/18 01/13/18 01/14/18 05:59 05:59 05:59 Intake Total 500 Balance 500 - Physical Exam Constitutional: appears nourished, not in pain, chronically ill appearing Eyes: PERRL Ears, Nose, Mouth, Throat: hard of hearing Cardiovascular: regular rate and rhythym, edema (trace) Respiratory: no respiratory distress Skin: warm Musculoskeletal: generalized weakness Neurologic: AAOx3 Psychiatric: interacting appropriately, other (sleepy) ICD10 Worksheet Patient Problems: Problems Problem Status Onset Failure to thrive in adult Acute Community acquired pneumonia Acute Failure of outpatient treatment Acute Multiple drug allergies Acute
[2018-01-13] MEDS: ACETAMINOPHEN 325 MG TAB PO PRN ×2 (11:49→20:30)
[2018-01-13] MEDS ORDERED: PANTOPRAZOLE SODIUM 40 MG TAB PO PRN (15:26)
[2018-01-13] MEDS ORDERED: ALBUTEROL 60 PUFFS/8 GM MDI IH PRN (15:26)
[2018-01-13] MEDS ORDERED: ALBUTEROL 3 ML DEYVIAL IH PRN (15:26)
[2018-01-13] MEDS: LOSARTAN POTASSIUM 50 MG TAB PO SCH (16:07)
--- NOTE | 2018-01-13 16:30 | PDMN ---
Medical Necessity Medical necessity: Pt changed to IP 01/13/2018 per and [facility] GC-GDC (General Discharge Criteria); los > 2 mn for weakness and fatigue requiring therapies d/ t high risk of falls and inability to perform ADLs, hyponatremia and lupus; requiring further monitoring, serial chemistries, and therapies. Comorbid advanced age, hairy cell leukemia, and DM
[2018-01-14] MEDS: ACETAMINOPHEN 325 MG TAB PO PRN ×3 (03:24→21:59)
[2018-01-14] MEDS: LEVOTHYROXINE 125 MCG TAB PO SCH (04:39)
[2018-01-14] MEDS: INSULIN LISPRO 100 UNIT/ML SC SCH ×3 (07:31→17:32)
[2018-01-14] MEDS: FOLIC ACID 1 MG TAB PO SCH (09:15)
[2018-01-14] MEDS: ENOXAPARIN 40 MG/0.4 ML SYR SC SCH (09:15)
[2018-01-14] MEDS: IBUPROFEN 200 MG TAB PO PRN ×2 (09:15→22:03)
[2018-01-14] MEDS: RALOXIFENE HCL 60 MG TAB PO SCH (09:15)
--- NOTE | 2018-01-14 09:45 | ASMTCMCOM ---
CM Note CM Note Notes: 01/14/18 CM met w/ pt and daughter Terese for dispo planning. Terese would like a referral made to [facility]. 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 Referral sent. Second choice is [facility]. CM to follow. Plan: SNF 01/13/18 Pt is a 87 y/o female admitted for mediastinal hematoma. CM met w/ pt and grand daughter for dispo planning. PT is recommending SNF. CM provided grand daughter w/ senior blue book. Pt was drowsy and grand daughter asked if she could check back in tomorrow. CM to follow. Plan: TBD Date Signed: 01/14/2018 09:44 AM Electronically Signed By:YAIR Mccallum
[2018-01-14] MEDS: LOSARTAN POTASSIUM 50 MG TAB PO SCH (14:02)
[2018-01-14] MEDS ORDERED: predniSONE 20 MG TAB PO ONE (15:15)
[2018-01-14] MEDS: CEPACOL LOZENGE PO PRN ×3 (15:36→20:17)
--- NOTE | 2018-01-14 16:35 | HOSPPROG ---
Hospitalist Progress Note Assessment/Plan: Sussy Montes De Oca is a 87 yo F with a PMHx of lupus, DM, hypothyroidism who presents to [facility] for acute onset of fatigue today. The patient was discharged from hospital on 01/10 and has been doing well at home since then. Her daughter reports that over the course of the day she was feeling more fatigued and weak and brought her to the ER for further evaluation *Generalized Weakness/Fatigue -was recently dc and on that admission had similar symptoms -PCR is negative on this admission -procalcitonin is low -therapies are recommending a SNF -she has a hx of hairy cell leukemia, LDH is 519, she doesn't have pancytopenia *cough -likely a URI -Quangsin, Diana Parra, trial of low dose steroids (prednisone 20 mg started today) *Failure to thrive in adult - Patient's daughter does not feel safe caring for her mother, hx of falls, high fall risk - she needs a higher level of care *Hyponatremia - resolved *Lupus - Continue home medications *back pain - resolved *Hypothyroidism -TSH is 3.8 *T2DM - BG WNL on admission - Hold Sitagliptin as IP, SSI *HTN - On Amlodipine, Losartan, Triamterene, HCTZ as OP (will place parameters as when to hold) *IBS-C - Continue home Linaclotide *Ppx: Lovenox *Plan:trial of steroid, Robitussin, Plan is for FM on Thursday Subjective: Sussy said she has had a cough for the past two days. No other complaints. Objective: Vital Signs Temp Pulse Resp BP Pulse Ox 37.1 C 70 20 153/62 H 93 01/14/18 16:00 01/14/18 16:00 01/14/18 16:00 01/14/18 16:00 01/14/18 16:00 Laboratory Results 01/14/18 04:55 - Physical Exam Constitutional: no apparent distress, appears nourished, not in pain Eyes: PERRL Ears, Nose, Mouth, Throat: hard of hearing (very) Cardiovascular: regular rate and rhythym Respiratory: no respiratory distress, no rales or rhonchi Gastrointestinal: normoactive bowel sounds Skin: warm Musculoskeletal: generalized weakness Neurologic: AAOx3 Psychiatric: interacting appropriately ICD10 Worksheet Patient Problems: Problems Problem Status Onset Failure to thrive in adult Acute Community acquired pneumonia Acute Failure of outpatient treatment Acute Multiple drug allergies Acute
[2018-01-14] MEDS: BENZONATATE 100 MG CAP PO PRN (21:16)
[2018-01-15] MEDS: CEPACOL LOZENGE PO PRN ×2 (02:16→20:00)
[2018-01-15] MEDS: ACETAMINOPHEN 325 MG TAB PO PRN ×3 (02:16→19:42)
[2018-01-15] MEDS: IBUPROFEN 200 MG TAB PO PRN ×2 (04:06→19:42)
[2018-01-15] MEDS: LEVOTHYROXINE 125 MCG TAB PO SCH (06:02)
[2018-01-15] MEDS: BENZONATATE 100 MG CAP PO PRN ×2 (06:02→22:30)
[2018-01-15] MEDS: INSULIN LISPRO 100 UNIT/ML SC SCH ×3 (08:32→17:24)
[2018-01-15] MEDS: predniSONE 20 MG TAB PO SCH (08:48)
[2018-01-15] MEDS: NON-FORMULARY NEW DRUG (Linaclotide [Linzess] 290 MCG) PO SCH (08:48)
[2018-01-15] MEDS: ENOXAPARIN 40 MG/0.4 ML SYR SC SCH (08:48)
[2018-01-15] MEDS: RALOXIFENE HCL 60 MG TAB PO SCH (08:48)
[2018-01-15] MEDS: FOLIC ACID 1 MG TAB PO SCH (08:48)
[2018-01-15] MEDS ORDERED: METHOTREXATE 2.5 MG TAB PO SCH (09:00)
--- NOTE | 2018-01-15 12:26 | HOSPPROG ---
Hospitalist Progress Note Assessment/Plan: Sussy Montes De Oca is a 87 yo F with a PMHx of lupus, DM, hypothyroidism who presents to [facility] for acute onset of fatigue today. The patient was discharged from hospital on 01/10 and has been doing well at home since then. Her daughter reports that over the course of the day she was feeling more fatigued and weak and brought her to the ER for further evaluation. First encounter, chart reviewed. *Generalized Weakness/Fatigue -was recently dc and on that admission had similar symptoms -PCR is negative on this admission -procalcitonin is low -therapies are recommending a SNF -she has a hx of hairy cell leukemia, LDH is 519, she doesn't have pancytopenia -no clear etiol for fatigue *cough -likely a URI -Quangsin, Diana Parra, trial of low dose steroids (prednisone 20 mg) *Failure to thrive in adult - Patient's daughter does not feel safe caring for her mother, hx of falls, high fall risk - she needs a higher level of care -just moved to [place] *Hyponatremia - resolved *Lupus - Continue home medications *back pain - resolved *Hypothyroidism -TSH is 3.8 *T2DM - BG WNL on admission - Hold Sitagliptin as IP, SSI - DC glucose checks *HTN - On Amlodipine, Losartan, Triamterene, HCTZ as OP (will place parameters as when to hold) *IBS-C - Continue home Linaclotide *Ppx: Lovenox *Plan:trial of steroid, Robitussin, Plan is for FM on Thursday D/W Daughter at bedside Subjective: Up in chair. Feesl tired. Eating lunch. Objective: Vital Signs Temp Pulse Resp BP Pulse Ox 36.5 C 91 18 135/61 H 97 01/15/18 08:00 01/15/18 08:00 01/15/18 08:00 01/15/18 08:00 01/15/18 08:00 Laboratory Results 01/14/18 04:55 01/14/18 01/15/18 01/16/18 05:59 05:59 05:59 Intake Total 500 Balance 500 - Physical Exam Constitutional: appears nourished, not in pain, chronically ill appearing Eyes: PERRL, anicteric sclera, EOMI Ears, Nose, Mouth, Throat: moist mucous membranes, ears appear normal, hard of hearing Cardiovascular: No JVD, No tachycardia, No edema Respiratory: no respiratory distress, no rales or rhonchi, reduced air movement Gastrointestinal: normoactive bowel sounds, No tenderness, No ascites Skin: warm, normal color, No mottled Musculoskeletal: normal joint ROM, no joint effusions, generalized weakness Neurologic: AAOx3 Psychiatric: not anxious, not encephalopathic, flat affect, poor insight, poor judgement ICD10 Worksheet Patient Problems: Problems Problem Status Onset Community acquired pneumonia Acute Failure of outpatient treatment Acute Multiple drug allergies Acute Failure to thrive in adult Acute
[2018-01-15] MEDS: LOSARTAN POTASSIUM 50 MG TAB PO SCH (13:34)
[2018-01-15] MEDS: GUAIFENESIN/DM 10 ML UDCUP PO PRN (20:00)
[2018-01-16] MEDS: IBUPROFEN 200 MG TAB PO PRN (05:10)
[2018-01-16] MEDS: GUAIFENESIN/DM 10 ML UDCUP PO PRN (05:10)
[2018-01-16] MEDS: LEVOTHYROXINE 125 MCG TAB PO SCH (05:50)
[2018-01-16 08:18] VITALS: BP 157/62
--- NOTE | 2018-01-16 09:14 | PDIAF ---
- Diagnosis Diagnosis: weakness Code Status: Full Code - Medication Management Discharge Medications: electronically signed and located in the Home Medication List. PICC Care - Routine: N/A - Orders Services needed: Registered Nurse, Physical Therapy, Occupational Therapy Isolation Type: None - Follow Up Care Current Providers and Referrals: Vy Guerra MD [Primary Care Provider] - As per Instructions
[2018-01-16] MEDS: RALOXIFENE HCL 60 MG TAB PO SCH (09:36)
[2018-01-16] MEDS: ENOXAPARIN 40 MG/0.4 ML SYR SC SCH (09:36)
[2018-01-16] MEDS: predniSONE 20 MG TAB PO SCH (09:36)
[2018-01-16] MEDS: FOLIC ACID 1 MG TAB PO SCH (09:36)
[2018-01-16] MEDS: NON-FORMULARY NEW DRUG (Linaclotide [Linzess] 290 MCG) PO SCH (10:49)
[2018-01-16] MEDS: INSULIN LISPRO 100 UNIT/ML SC SCH ×2 (10:49→12:58)
--- NOTE | 2018-01-16 11:03 | ASMTLACE ---
LACE Length of stay for Answers: 3 days current admission Acuity / Level of Answers: Yes Care: Did the patient have an inpatient admission? Comorbidities - select Answers: Diabetes (uncontrolled or all that apply controlled) Other Notes: Hx of lupus; Hypothyroi d # of Emergency department Answers: 1-2 visits in the last 6 months Score: 9 Date Signed: 01/16/2018 11:02 AM Electronically Signed By:Ria Chavarria RN
--- NOTE | 2018-01-16 12:58 | ASMTDCNOTE ---
Case Management Discharge Discharge Order Complete? Answers: Yes Patient to Obtain Answers: Other Notes: via [facility] Medications Transportation Arranged Answers: Family/Friends Transport will Pick (Date 01/16/2018 12:00 AM & Time) EMTALA Complete Answers: No Notes: N/A Case Management Transport Answers: No Form Complete Faxed Final Orders Answers: Yes Notes: Sent via [employer] and manual fax; confirmed receipt with [facility] Agency/Facility Transfer Answers: Yes Notes: Sent via [employer] and Report Printed & Faxed to manual fax; confirmed Receiving Agency receipt with [facility] Family Notified Answers: Yes Notes: Dghtr at bedside Discharge Comments Notes: Reviewed chart regarding discharge plan of care, pt's progress. Spoke with Jennifer Cheatham NP and AKILA Nguyen, pt to discharge to [facility] today. Pt's dghtr at bedside; pt and dghtr in agreement with plan. Call placed to [facility], [facility] at [facility]. Per [facility], able to accept pt. Discharge orders sent via All[employer] and via manual fax per [facility]'s request. Confirmed receipt with [facility]. Report called by AKILA Nguyen. IM previously signed. Pt to follow up as directed. CM available for any further issues or concerns. Discharge Plan: [facility] Date Signed: 01/16/2018 12:57 PM Electronically Signed By:Ria Chavarria RN
--- NOTE | 2018-01-16 12:59 | ASDISCHSUM ---
Discharge Information Plan Status:SNF Medically Cleared to Leave:01/15/2018 Discharge Date:01/16/2018 12:58 PM D/C Disposition:[facility] Facility ADT D/C Disposition:[facility] Facility Projected Discharge Date:01/15/2018 11:00 AM Transportation at D/C:Family Discharge Delay Reason: Follow-Up Date:01/15/2018 11:00 AM Discharge Slot:2 - 12:01 pm - 18:00 pm Final Diagnosis:Mediastinal hemotoma, generalized weakness, fatigue, weakness, FTT, hyponatremia, marco pus Placement Information Referral Type:*[facility]/SNF Referral ID:[id number] Provider Name:[facility] Address 1:[address] Address 2: City:[place] Selection Factors:Patient/Family Choice State:[place] Patient Contact Information Contact Name:BAYRON Relationship:Daughter Address: City: Alternate Phone: State/Zip Code: Email: Financial Information Financial Class:Medicare Primary Plan Desc:MEDICARE INPATIENT Primary Plan Number:[id number] Secondary Plan Desc: Secondary Plan Number: Assessment Information LACE LACE Length of stay for Answers: 3 days current admission Acuity / Level of Answers: Yes Care: Did the patient have an inpatient admission? Comorbidities - select Answers: Diabetes (uncontrolled or all that apply controlled) Other Notes: Hx of lupus; Hypothyroi d # of Emergency department Answers: 1-2 visits in the last 6 months Score: 9 Date Signed: 01/16/2018 11:02 AM Electronically Signed By:Ria Chavarria RN [facility] CM Progress Note CM Note CM Note Notes: 01/14/18 CM met w/ pt and daughter Terese for dispo planning. Terese would like a referral made to [facility]. 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 Referral sent. Second choice is [facility]. CM to follow. Plan: SNF 01/13/18 Pt is a 87 y/o female admitted for mediastinal hematoma. CM met w/ pt and grand daughter for dispo planning. PT is recommending SNF. CM provided grand daughter w/ senior blue book. Pt was drowsy and grand daughter asked if she could check back in tomorrow. CM to follow. Plan: TBD Date Signed: 01/14/2018 09:44 AM Electronically Signed By:YAIR Mccallum Case Management Discharge Plan Note Case Management Discharge Discharge Order Complete? Answers: Yes Patient to Obtain Answers: Other Notes: via [facility] Medications Transportation Arranged Answers: Family/Friends Transport will Pick (Date 01/16/2018 12:00 AM & Time) REJI Complete Answers: No Notes: N/A Case Management Transport Answers: No Form Complete Faxed Final Orders Answers: Yes Notes: Sent via Allscripts and manual fax; confirmed receipt with [facility] Agency/Facility Transfer Answers: Yes Notes: Sent via Allscripts and Report Printed & Faxed to manual fax; confirmed Receiving Agency receipt with [facility] Notified Answers: Yes Notes: Dghtr at bedside Discharge Comments Notes: Reviewed chart regarding discharge plan of care, pt's progress. Spoke with Jennifer Cheatham NP and AKILA Nguyen, pt to discharge to [facility] today. Pt's dghtr at bedside; pt and dghtr in agreement with plan. Call placed to [facility], [facility] at [facility]. Per [facility], able to accept pt. Discharge orders sent via [employer] and via manual fax per [facility]'s request. Confirmed receipt with [facility]. Report called by AKILA Nguyen. IM previously signed. Pt to follow up as directed. CM available for any further issues or concerns. Discharge Plan: [facility] Date Signed: 01/16/2018 12:57 PM Electronically Signed By:Ria Chavarria RN Intervention Information Intervention Type:*Incorrect Registration Date of Service:01/12/2018 08:36 AM Patient Type:Inpatient Staff Member:AKILA Horner, Robyn Hours: Discipline: Severity: Comment: Intervention Type:*LIZARRAGA-Signed Date of Service:01/13/2018 11:38 AM Patient Type:Observation Staff Member:Sia Howard Hours: Discipline: Severity: Comment: Intervention Type:*IM-Signed Date of Service:01/15/2018 02:35 PM Patient Type:Inpatient Staff Member:Maureen Soto Hours: Discipline: Severity: Comment:
--- NOTE | 2018-01-16 15:00 | GDS ---
DISCHARGE DIAGNOSES: 1. Generalized weakness with fatigue. 2. Cough. 3. Upper respiratory infection. 4. Failure to thrive in adult. 5. Hyponatremia. 6. History of lupus. 7. Hypothyroidism. 8. Diabetes mellitus type 2. 9. Hypertension. 10. Irritable bowel disorder. PHYSICAL EXAM: GENERAL: The patient is alert. VITAL SIGNS: Afebrile at 36.9. Pulse is 75. Respi ratory rate is 14. Blood pressure is 157/62. She is saturating 92% on room air. I have seen and ev aluated the patient on the day of discharge. HOSPITAL COURSE: The patient is an 87-year-old female brought to the emergency room after being note d to be weak. She was evaluated and diagnosed with: 1. Generalized weakness with fatigue. There was no clear etiology to this. During the patient's ho spitalization, she received evaluation with Physical Therapy as well as Occupational Therapy and also laboratory evaluation. Her symptoms have significantly improved. 2. Cough with upper respiratory infection. She was treated supportively for this. This is likely s econdary to a viral process. She did receive prednisone, which is helping in reducing her cough. Sh edy will continue on another 3 days of prednisone at the time of disposition. 3. Failure to thrive in adult. The patient will require snf facility for further rehabi litation and management. 4. Hyponatremia in the setting of hypovolemia and has resolved. 5. History of lupus. Her home medications have been continued with no aggravation. 6. Hypothyroidism. TSH is 3.8 and stable. 7. Diabetes mellitus type 2. This is well controlled during this hospital course. 8. Hypertension. Her blood pressure medications have been reinitiated and she will continue these a t the time of disposition. 9. History of irritable bowel syndrome. She has had no complications with regard to this. DISPOSITION: The patient will be discharged to [facility] for further rehab and management. DISCHARGE MEDICATIONS: Please refer to EMR form. I have not adjusted the patient's previously presc ribed home medications to the best of my knowledge. FOLLOWUP: Will be with her primary care physician, Dr. Vy Guerra. TIME SPENT WITH PATIENT: I spent greater than 35 minutes in the care, coordination, and management o f the patient's disposition. /[id number]/MODL
== END 2018-01-16 12:58 | DRG 948 ==
LOC: INTOOBSV 16:10 → F3E 18:13 → OBSVTOIN 01-13 15:46
PROVIDERS: ADMIT Internal Medicine; ATTEND Internal Medicine
DX: R53.1 Weakness (principal); E87.1 Hypo-osmolality and hyponatremia; J06.9 Acute upper respiratory infection, unspecified; E86.9 Volume depletion, unspecified; R53.83 Other fatigue; R62.7 Adult failure to thrive; M32.9 Systemic lupus erythematosus, unspecified; E03.9 Hypothyroidism, unspecified; E11.9 Type 2 diabetes mellitus without complications; I10 Essential (primary) hypertension; K58.9 Irritable bowel syndrome, unspecified
CPT/HCPCS: 84484-PO; 97110-GO; 97110-GP; 97116-GP; 97162-GP; 97165-GO; 97530-GO; 97535-GO; G0378; G8978-GP-CK; G8979-GP-CJ; G8987-GO-CI; G8988-GO-CI; J1650; J2405; J7512

== ENCOUNTER 2018-01-18 16:11 | Emergency (ER) | payer OTHER ==
--- NOTE | 2018-01-18 17:09 | EDPHY ---
HPI/HX/ROS/PE/MDM - Data Points Imaging: Discussed imaging studies w/ call out clerk Radiologist, I viewed and interpreted images myself Narrative: CHIEF COMPLAINT: "Sick all over" HISTORY OF PRESENT ILLNESS: The patient is an 87 y/o female with a history of lupus arriving with her family returning to the ED for the 3rd time in the last week complaining of feeling "just sick." When I ask if she can tell me any more about this she answers "no." She denies fever, chills, chest pain, shortness of breath, palpitations, vomiting, blood in stools, urinary complaints, headache, lightheadedness, rash. She was admitted here for a night on 01/09/18, 8 days ago , for fatigue and viral syndrome. She was discharged home but returned 3 days later at 01/13/18 complaining of fatigue and was diagnosed with bronchitis and failure to thrive. She was again discharged 01/16/18, 2 days ago. She went to [facility], but did not stay there due to the room being too small so she is now staying with her daughter. Since then she has continued to complain of feeling "sick all over," but can't describe it any further to me or to her family. She does endorse one episode of diarrhea today. Her family noticed a cough yesterday that resolved today and a few short episodes of slurred speech they attributed to being "just a little lethargic." They have not noticed any other symptoms. She has been eating and drinking normally and is walking at her baseline with her walker. Today she asked to go to the hospital because she feels "sick all over." No anticoagulants or aspirin. No recent ill contacts or travel. No history of cardiac disease, respiratory disease, kidney disease. Family reports mentally she is "sharper than can be" with no confusion on who they are, finding her way around the house, or obvious memory problems. Family feels she is safe at home only when family members are with her. Her daughter says, "she's lost a lot and she's not used to change at all" referring to the recent of her and moving away from her home. REVIEW OF SYSTEMS: Aside from elements discussed in the HPI, a comprehensive 10-point review of systems was reviewed and is negative. PAST MEDICAL HISTORY: 1. Lupus 2. Macular degeneration 3. Hypertension 4. Hypothyroidism 5. 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 Diabetes type II "controlled by diet" - does not check BGL 8. Recent bronchitis SOCIAL HISTORY: Daughter at bedside. Currently staying with daughter. Never smoker. No illicit drugs. 2 months ago suddenly. PCP: Dr. Guerra. Prior medical records reviewed including admission 01/12/18 for fatigue. VITAL SIGNS: Reviewed by me GENERAL: Well-developed, well-nourished, resting comfortably in no respiratory distress. HEENT: Atraumatic. Eyes: No icterus, no injection. Mouth: moist mucous membranes. No erythema or lesions. Neck: supple with no adenopathy. LUNGS: Clear to auscultation bilaterally, no wheezes, rhonchi or rales. CARDIAC: Regular rate and rhythm, no rubs, murmurs or gallops. ABDOMEN: Soft, nontender, nondistended, bowel sounds normal. BACK: No CVA tenderness. EXTREMITIES: No trauma. No edema. Range of motion is normal throughout. NEURO: Alert and oriented, grossly nonfocal. Hard of hearing. SKIN: Warm and dry, no rash. PSYCHIATRIC: Flat affect. Normal mentation, no agitation. Portions of this note were transcribed by a biomedical engineering internship. I personally performed a history, physical exam, medical decision making, and confirmed accuracy of information the transcribed note. (Katalina Osorio) ED Course: Plan for IV, labs, EKG, head CT, chest x-ray. The 12 lead EKG was interpreted by myself. Sinus mechanism. Loss of R waves compared to EKG 6 days ago on 01/12/18. See hard copy and/or "tracemaster" electronic copy for interpretation. Head CT: Negative for acute findings Chest x-ray: Possibly developing pneumonia at the left lateral lung base. Patient received normal saline and felt much improved. Urinalysis is concerning for potential urinary tract infection. Chest x-ray demonstrates the possibility of a pneumonia at the left lateral lung base. Patient will be placed on azithromycin for possible pneumonia. With respect to patient's urine tract infection, given her long list of allergies the decision was made to place the patient on Macrobid. I discussed at length patient workup the daughter and the patient. Also discussed in private my concerns with the daughter the patient may be depressed as she has family presented with reports of just not feeling well. Daughter feels strongly that something is medically wrong but is open to the thoughts that the stress of a recent of the patient's spouse as well as a moved to [place] may in fact be causing some depression. Note: On reviewing this chart the following day, I noticed that there was no urine culture ordered. I called the lab to see if her to the urine culture to the urine which is in the lab from this stated visit but they are unable to as too long. I called the patient's home and the daughter presented to the emergency department with a urine sample which has now been sent for culture. ( Katalina Osorio) MDM: 01/23/18 0855: I reviewed the patient's urine culture result, which indicates growth of Pseudomonas. I reviewed the patient's recent visit history and hospitalization - she has been hospitalized several times now in the past few weeks with no clear etiology of symptoms and recent negative blood culture. The patient has fairly positive UA collected on 01/18 which corresponds to this culture, but has a repeat UA in the system from 01/21 which looks much improved. The patient has an extensive allergy list and would require readmission to the hospital for IV antibiotics if treatment was indicated. I think the improved UA on oral antibiotics speaks to colonization rather than acute infection and I do not think patient needs to be asked to return to the hospital for admission based on this result. I have asked the charge nurse to call and ask how she is feeling. Patient contacted - she is feeling much worse so we have recommended she present back to the ED. (Fran Caal) - Data Points Imaging Results: CT Head: Impression: Nothing acute identified. Please see above. Results called to Dr. Katalina Osorio at 6:20 PM General information for patients regarding this examination can be found at [email or web address]. If you have questions or comments about this report, please contact me at (hospital) or [phone] (cell). Dictated By: Fran Jang MD CXR: Impression: Possibly developing pneumonia at the left lateral lung base. Otherwise stable. Dictated By: Fran Jang MD (Katalina Osorio) Laboratory Results: Laboratory Results 01/18/18 17:25 01/18/18 17:25 Medications Given: Discontinued Medications Azithromycin (Zithromax) 500 mg PO EDNOW ONE PRN Reason: Protocol Stop: 01/18/18 19:26 Last Admin: 01/18/18 19:33 Dose: 500 mg Sodium Chloride (Ns) 500 mls @ 1,000 mls/hr IV EDNOW ONE PRN Reason: Protocol Stop: 01/18/18 18:59 Last Admin: 01/18/18 18:55 Dose: 500 mls Nitrofurantoin (Macrobid 100mg Prepack#2) 1 btl TAKEHOME EDNOW ONE PRN Reason: Protocol Stop: 01/18/18 19:27 Last Admin: 01/18/18 19:33 Dose: 1 btl Point of Care Test Results: Chemistry 01/18/18 17:47 POC Troponin I 0.00 ng/mL ng/mL (0.00-0.08) General Time Seen by Provider: 01/18/18 16:28 Initial Vital Signs: Initial Vital Signs Temperature (C) 36.9 C 01/18/18 16:22 Heart Rate 92 01/18/18 16:22 Respiratory Rate 18 01/18/18 16:22 Blood Pressure 150/89 H 01/18/18 16:22 O2 Sat (%) 94 01/18/18 16:22 O2 Delivery Mode Room Air Allergies/Adverse Reactions: Penicillins Allergy (Severe, Verified 01/23/18 10:37) Anaphylaxis clindamycin [From Cleocin] Allergy (Verified 01/23/18 10:37) doxycycline Allergy (Verified 01/23/18 10:37) NAUSEA duloxetine [From Cymbalta] Allergy (Verified 01/23/18 10:37) levofloxacin [From Levaquin] Allergy (Verified 01/23/18 10:37) lisinopril Allergy (Verified 01/23/18 10:37) metoprolol [From Toprol XL] Allergy (Verified 01/23/18 10:37) morphine Allergy (Verified 01/23/18 10:37) OVERLY SEDATED nebivolol [From Bystolic] Allergy (Verified 01/23/18 10:37) pregabalin [From Lyrica] Allergy (Verified 01/23/18 10:37) rosuvastatin [From Crestor] Allergy (Verified 01/12/18 15:25) sulfamethoxazole [From Bactrim] Allergy (Verified 01/12/18 15:25) Unknown tramadol Allergy (Verified 01/12/18 15:25) Vomiting trimethoprim [From Bactrim] Allergy (Verified 01/12/18 15:25) valacyclovir [From Valtrex] Allergy (Verified 01/12/18 15:25) Home Medications: Medication Instructions Recorded Folic Acid [Folic Acid 1 MG (*)] 1 mg PO DAILY 01/09/18 Levothyroxine [Synthroid 125 mcg 125 mcg PO DAILY06 01/09/18 (*)] Linaclotide [Linzess] 290 mcg PO DAILY 01/09/18 Losartan Potassium [Cozaar 50 mg 100 mg PO DAILY@14 01/09/18 (*)] Methotrexate Sodium [Rheumatrex] 10 mg PO FR 01/09/18 Pantoprazole Sodium [Protonix 40mg 40 mg PO BID PRN 01/09/18 (*)] Raloxifene HCl [Evista] 60 mg PO DAILY 01/09/18 Triamterene/Hydrochlorothiazid 1 each PO DAILY 01/09/18 [Triamterene-Hctz 37.5-25 mg Tb] amLODIPine BESYLATE [Norvasc 10 mg 10 mg PO DAILY@14 01/09/18 (*)] sitaGLIPtin PHOSPHATE [Januvia 100 100 mg PO DAILY 01/09/18 MG (*)] Acetaminophen [Tylenol 325mg (*)] 650 mg PO Q4HRS PRN tab 01/10/18 Albuterol [Proventil Inhaler HFA 1 - 2 puffs IH Q4H PRN 01/10/18 (*)] Albuterol [Proventil Neb] 3 ml IH Q2HRS PRN #30 deyvial 01/10/18 Benzocaine/Menthol 15/ [Cepacol 1 ea PO PRN PRN lozenge 01/16/18 Lozenge] Benzonatate [Tessalon Pearles] 100 mg PO TID PRN cap 01/16/18 Ibuprofen [Motrin (*)] 400 mg PO Q6HRS PRN tab 01/16/18 guaiFENesin/DEXTROMETHORPHAN 10 ml PO Q4HRS PRN ml 01/16/18 [Robitussin Dm Oral Liquid (*)] predniSONE 20 mg PO DAILY #3 tablet 01/16/18 Azithromycin [Zithromax] 250 mg PO DAILY #4 tab 01/18/18 Nitrofurantoin Monohyd/M-Cryst 100 mg PO BID 7 Days #14 capsule 01/18/18 [Macrobid 100 mg Capsule] Departure - Departure Disposition: Home, Routine, Self-Care Clinical Impression: Dehydration, Possible pneumonia Urinary tract infection Qualifiers: Urinary tract infection type: site unspecified Hematuria presence: without hematuria Qualified Code(s): N39.0 - Urinary tract infection, site not specified Condition: Good Instructions: Nitrofurantoin Combination (By mouth), Urinary Tract Infection in Older Adults (ED) Additional Instructions: 1. You been given a prescription for Macrobid. Please take this as directed for the next 7 days. 1 tablet by mouth 2 times a day. The please be sure that you find out the results of the culture, it is possible that you may need to be switched to a different antibiotic. 2. For the possible pneumonia, have given you prescription for azithromycin. Please take this as directed. 1st dose was given in the emergency department. I also recommend that she begin using the albuterol meter dose inhaler 2-4 puffs IV 4-6 hours as needed for shortness of breath. 3. Please stay well-hydrated. 4. Please follow up with primary care physician's office regarding physical therapy, occupational therapy and possible assistance at home if needed. Referrals: Vy Guerra MD [Primary Care Provider] - As per Instructions Prescriptions: Azithromycin [Zithromax] 250 mg PO DAILY #4 tab Nitrofurantoin Monohyd/M-Cryst [Macrobid 100 mg Capsule] 100 mg PO BID 7 Days # 14 capsule Report Scribed for: Katalina Osorio Report Scribed by: Rajani Peng Date of Report: 01/18/18 Time of Report: 17:09
[2018-01-18 17:58] LABS: PLATELET COUNT 252 10^3/uL (150-400)
[2018-01-18] MEDS ORDERED: NS 500 ML IV ONE (18:30)
[2018-01-18 18:59] VITALS: BP 142/95
[2018-01-18] MEDS ORDERED: AZITHROMYCIN 250 MG TAB PO ONE (19:25)
[2018-01-18] MEDS ORDERED: NITROFURANTOIN 100MG PREPACK#2 BTL TAKEHOME ONE (19:26)
--- NOTE | 2018-01-18 19:57 | CPEKG ---
Test Reason : OPEN Blood Pressure : / mmHG Vent. Rate : 077 BPM Atrial Rate : 081 BPM P-R Int : 173 ms QRS Dur : 087 ms QT Int : 398 ms P-R-T Axes : 023 -27 040 degrees QTc Int : 451 ms Sinus rhythm LVH by voltage Inferior infarct, old Anterior Q waves, possibly due to LVH Confirmed by Katalina Osorio ([id number]) on 01/18/2018 7:56:50 PM Referred By: Confirmed By:Katalina Osorio
== END 2018-01-18 20:00 | disposition home or self-care (01) ==
DX: N39.0 Urinary tract infection, site not specified (principal); B96.5 Pseudomonas (aeruginosa) (mallei) (pseudomallei) as the cause of diseases classified elsewhere; E86.0 Dehydration; R19.7 Diarrhea, unspecified; R91.8 Other nonspecific abnormal finding of lung field; M32.9 Systemic lupus erythematosus, unspecified; I10 Essential (primary) hypertension; E11.9 Type 2 diabetes mellitus without complications; Z85.6 Personal history of leukemia; Z86.011 Personal history of benign neoplasm of the brain
CPT/HCPCS: 84484-PO; G0480

== ENCOUNTER 2018-08-27 12:07 | Inpatient (IN) | payer OTHER | END 2018-08-30 15:54 | disposition home health service (06) | LOC: F3E 14:53 ==